=== PATIENT | male | born 1975 | race Caucasian/White ===

== ENCOUNTER 2022-12-07 00:53 | Emergency (ER) | payer OTHER ==
[~2022-12-07] VITALS: Ht 177.8 cm; Wt 124.7 kg
[2022-12-07 02:45] LABS: Calcium, Ionized (POC) 1.15 mmol/L (1.10-1.46); Chloride (POC) 106 mmol/L (98-108); Creatinine (POC) 0.9 mg/dL (0.8-1.3); Glucose (ISTAT POC) 142 mg/dL (70-99); Hemoglobin (POC) 16.7 g/dL (13.5-17.5); Potassium (POC) 3.9 mmol/L (3.5-5.5); Sodium (POC) 140 mmol/L (135-148); Total CO2 (POC) 24 mmol/L (21-32)
[2022-12-07] MEDS ORDERED: ONDA4ODT MM (03:59)
== END 2022-12-07 04:10 | disposition home or self-care (01) ==
LOC: ER 00:53
PROVIDERS: Student in an Organized Health Care Education/Training Program
DX: R11.2 Nausea with vomiting, unspecified (principal); E86.0 Dehydration; R19.7 Diarrhea, unspecified; F17.220 Nicotine dependence, chewing tobacco, uncomplicated
CPT/HCPCS: 36415; 80047; 85014; 96365; 96375; 99283-25; A9270; J2405; J3475; J7030

== ENCOUNTER 2023-07-06 10:02 | Emergency (ER) | payer OTHER ==
[~2023-07-06] VITALS: Ht 177.8 cm; Wt 127.0 kg
[~2023-07-06 10:02] MED LIST: ONDA4ODT MM
[2023-07-06 11:07] LABS: BASOPHILS ABSOLUTE AUTO 0.01 K/mm3 (0.00-0.23); BASOPHILS PERCENT AUTO 0 % (0-2); EOSINOPHILS ABSOLUTE AUTO 0.02 K/mm3 (0.00-0.68); EOSINOPHILS PERCENT AUTO 0 % (0-6); Hematocrit 49.7 % (37.0-53.0); IMMATURE GRAN ABSOLUTE AUTO 0.03 K/mm3 (0.00-0.10); IMMATURE GRAN PERCENT AUTO 0 % (0-1); LYMPHOCYTES PERCENT AUTO 11 % (21-46); MONOCYTES ABSOLUTE AUTO 0.53 K/mm3 (0.16-1.47); MONOCYTES PERCENT AUTO 5 % (4-13); Mean Corpuscular HGB 29.4 pg (26.0-34.0); Mean Corpuscular HGB Conc 34.2 g/dL (31.5-36.5); Mean Corpuscular Volume 86 fL (80-100); Mean Platelet Volume 11.7 fL (9.1-12.4); NEUTROPHILS ABSOLUTE AUTO 8.56 K/mm3 (1.96-9.15); NEUTROPHILS PERCENT AUTO 84 % (41-73); Platelet Count 286 K/mm3 (150-400); RDW Coefficient Variation 12.6 % (11.7-14.2); RDW Standard Deviation 39.3 fL (35.1-46.3); Red Blood Cell Count 5.78 M/mm3 (4.30-5.90); White Blood Cell Count 10.25 K/mm3 (4.00-11.30)
[2023-07-06 11:32] LABS: Bun/Creatinine Ratio 14.6 (12.0-20.0); Calcium, Blood 9.2 mg/dL (8.5-10.1); Creatinine, Blood 0.96 mg/dL (0.60-1.20); Magnesium, Blood 2.4 mg/dL (1.6-2.4); Potassium, Blood 3.9 mmol/L (3.5-5.5)
[2023-07-06] MEDS ORDERED: ONDA4ODT MM (13:05)
[2023-07-06] MEDS ORDERED: FAMO20 PO (13:06)
[2023-07-06 13:09] VITALS: BP 137/81
== END 2023-07-06 13:19 | disposition home or self-care (01) ==
LOC: ER 10:02
PROVIDERS: Student in an Organized Health Care Education/Training Program
DX: R11.2 Nausea with vomiting, unspecified (principal); R19.7 Diarrhea, unspecified; E86.0 Dehydration; R10.84 Generalized abdominal pain; F17.220 Nicotine dependence, chewing tobacco, uncomplicated
CPT/HCPCS: 36415; 80048; 83735; 85025; 96374; 96375; 99284-25; A9270; J1790; J1885; J2405; J7030

== ENCOUNTER 2023-08-06 15:50 | Emergency (ER) | payer OTHER ==
[~2023-08-06] VITALS: Ht 182.9 cm; Wt 90.7 kg
[~2023-08-06 15:50] MED LIST changes: +FAMO20 PO
[2023-08-06 15:53] VITALS: BP 144/82
[2023-08-06] MEDS ORDERED: Pataday2.5 ML BOTHEYES (16:33)
== END 2023-08-06 16:42 | disposition home or self-care (01) ==
LOC: ER 15:50
DX: L23.9 Allergic contact dermatitis, unspecified cause (principal); F17.210 Nicotine dependence, cigarettes, uncomplicated
CPT/HCPCS: 96372; 99282-25; J3301

== ENCOUNTER 2024-08-08 22:08 | Emergency (ER) | payer OTHER ==
[~2024-08-08] VITALS: Ht 177.8 cm; Wt 115.7 kg
[~2024-08-08 22:08] MED LIST changes: +Pataday2.5 ML BOTHEYES
[2024-08-08 22:40] VITALS: BP 129/87
[2024-08-09] MEDS ORDERED: DOXY100 PO (00:49)
[2024-08-09] MEDS ORDERED: Doxycycline Hyclate 100 MG TAB PO ONE (00:50)
== END 2024-08-09 00:55 | disposition home or self-care (01) ==
LOC: ER 22:08
DX: S30.860A Insect bite (nonvenomous) of lower back and pelvis, initial encounter (principal); F17.220 Nicotine dependence, chewing tobacco, uncomplicated; Z79.899 Other long term (current) drug therapy; W57.XXXA Bitten or stung by nonvenomous insect and other nonvenomous arthropods, initial encounter
CPT/HCPCS: 10120; 99282; A9270

== ENCOUNTER 2024-08-29 00:43 | Emergency (ER) | payer OTHER ==
[~2024-08-29] VITALS: Ht 177.8 cm; Wt 110.7 kg
[~2024-08-29 00:43] MED LIST changes: +DOXY100 PO
[2024-08-29 01:06] VITALS: BP 127/77
[2024-08-29] MEDS ORDERED: Diphth,Pertuss(Acell),Tet Vac 0.5 ML VIAL IM ONE (02:05)
== END 2024-08-29 02:52 | disposition home or self-care (01) ==
LOC: ER 00:43
DX: S61.411A Laceration without foreign body of right hand, initial encounter (principal); F17.220 Nicotine dependence, chewing tobacco, uncomplicated; W26.0XXA Contact with knife, initial encounter; Z79.899 Other long term (current) drug therapy
CPT/HCPCS: 12001; 73130; 90471; 90715; 99283-25

== ENCOUNTER 2024-12-29 03:40 | Emergency (ER) | payer OTHER ==
[~2024-12-29] VITALS: Ht 188 cm; Wt 99.8 kg
[2024-12-29 04:12] LABS: BASOPHILS ABSOLUTE AUTO 0.04 K/mm3 (0.00-0.23); BASOPHILS PERCENT AUTO 1 % (0-2); EOSINOPHILS ABSOLUTE AUTO 0.16 K/mm3 (0.00-0.68); EOSINOPHILS PERCENT AUTO 2 % (0-6); Hematocrit 44.8 % (37.0-53.0); IMMATURE GRAN ABSOLUTE AUTO 0.03 K/mm3 (0.00-0.10); IMMATURE GRAN PERCENT AUTO 0 % (0-1); LYMPHOCYTES ABSOLUTE AUTO 2.82 K/mm3 (0.84-5.20); LYMPHOCYTES PERCENT AUTO 39 % (21-46); MONOCYTES ABSOLUTE AUTO 0.67 K/mm3 (0.16-1.47); MONOCYTES PERCENT AUTO 9 % (4-13); Mean Corpuscular HGB 29.1 pg (26.0-34.0); Mean Corpuscular HGB Conc 33.5 g/dL (31.5-36.5); Mean Corpuscular Volume 87 fL (80-100); Mean Platelet Volume 11.5 fL (9.1-12.4); NEUTROPHILS ABSOLUTE AUTO 3.45 K/mm3 (1.96-9.15); NEUTROPHILS PERCENT AUTO 48 % (41-73); Platelet Count 260 K/mm3 (150-400); RDW Coefficient Variation 12.9 % (11.7-14.2); RDW Standard Deviation 41.1 fL (35.1-46.3); Red Blood Cell Count 5.16 M/mm3 (4.30-5.90); White Blood Cell Count 7.17 K/mm3 (4.00-11.30)
[2024-12-29 04:42] LABS: Albumin, Blood 3.7 g/dL (3.4-5.0); Albumin/Globulin Ratio 1.3 (0.8-1.8); Bilirubin, Total 0.3 mg/dL (0.1-1.0); Bun/Creatinine Ratio 17.6 (12.0-20.0); Calcium, Blood 8.5 mg/dL (8.5-10.1); Creatinine, Blood 1.02 mg/dL (0.60-1.20); Globulin, Blood 2.8 g/dL (2.2-4.0); Potassium, Blood 3.7 mmol/L (3.5-5.5); Total Protein, Blood 6.5 g/dL (6.4-8.2)
[2024-12-29] MEDS ORDERED: Mag Hydrox/AL Hydrox/Simeth 30 ML UDC PO ONE (05:45)
[2024-12-29] MEDS ORDERED: Ketorolac Tromethamine 30mg Vial IV ONE (05:45)
[2024-12-29] MEDS ORDERED: Famotidine 10 MG/ML 2ML Vial IV ONE (07:00)
[2024-12-29] MEDS ORDERED: FAMO20 PO (07:03)
[2024-12-29] MEDS ORDERED: ALMACONE SUSPE355 ML PO (07:03)
[2024-12-29 07:21] VITALS: BP 132/86
== END 2024-12-29 07:21 | disposition home or self-care (01) ==
LOC: ER 03:40
PROVIDERS: Emergency Medicine
DX: R07.89 Other chest pain (principal); Z68.1 Body mass index [BMI] 19.9 or less, adult; R73.9 Hyperglycemia, unspecified; F17.220 Nicotine dependence, chewing tobacco, uncomplicated; Z79.1 Long term (current) use of non-steroidal anti-inflammatories (NSAID); Z79.899 Other long term (current) drug therapy; Z79.2 Long term (current) use of antibiotics
CPT/HCPCS: 71046; 80053; 84484; 85025; 93005; 93010; 96374; 96375; 99285-25; A9270; J1885

== ENCOUNTER 2025-01-06 22:12 | Emergency (ER) | payer MEDICARE ==
[~2025-01-06] VITALS: Ht 177.8 cm; Wt 109.8 kg
[~2025-01-06 22:12] MED LIST changes: +ALMACONE SUSPE355 ML PO
[2025-01-07] MEDS ORDERED: Famotidine 20 MG Tab PO ONE (01:15)
[2025-01-07] MEDS ORDERED: PredniSONE 20 MG Tab PO ONE (01:15)
[2025-01-07] MEDS ORDERED: EPINEPhrine HCl 1 MG/ML 1ML Amp IM ONE (01:15)
[2025-01-07] MEDS ORDERED: EpiNEPhrine 1 MG/1 ML 1ML Vial IM ONE (01:30)
[2025-01-07 02:30] VITALS: BP 150/87
[2025-01-07] MEDS ORDERED: PRED20 PO (03:13)
== END 2025-01-07 03:25 | disposition home or self-care (01) ==
LOC: ER 22:12
DX: J30.1 Allergic rhinitis due to pollen (principal); H02.844 Edema of left upper eyelid; H02.841 Edema of right upper eyelid; F17.220 Nicotine dependence, chewing tobacco, uncomplicated; Z79.1 Long term (current) use of non-steroidal anti-inflammatories (NSAID); Z79.899 Other long term (current) drug therapy; Z79.2 Long term (current) use of antibiotics
CPT/HCPCS: 96372; 99284; A9270; J0171; J7512

== ENCOUNTER 2025-05-13 11:20 | Emergency (ER) | payer OTHER ==
[~2025-05-13] VITALS: Ht 177.8 cm; Wt 116.6 kg
[~2025-05-13 11:20] MED LIST changes: +PRED20 PO
[2025-05-13 11:26] VITALS: BP 170/98
[2025-05-13] MEDS ORDERED: Triamcinolone Inj Susp 40 MG / ML 1ML Vial IM ONE (11:30)
[2025-05-13] MEDS ORDERED: PRED20 PO (11:34)
[2025-05-13] MEDS ORDERED: Benadryl Itch28.3 G1 TOP (11:34)
== END 2025-05-13 13:17 | disposition home or self-care (01) ==
LOC: ER 11:20
DX: L23.7 Allergic contact dermatitis due to plants, except food (principal); F17.220 Nicotine dependence, chewing tobacco, uncomplicated; Z79.899 Other long term (current) drug therapy
CPT/HCPCS: 96372; 99282-25; J3301